=== PATIENT | female | born 1970 | race Caucasian/White ===

== ENCOUNTER 2016-07-16 09:09 | Emergency (ER) | payer BC | END 2016-07-16 10:15 | disposition home or self-care (01) | LOC: ER 09:09 | PROC: 2W3BX1Z Immobilization of Left Upper Arm using Splint (ICD-10-PCS; principal; 2016-07-16) | DX: M25.022 Hemarthrosis, left elbow (principal); Z90.710 Acquired absence of both cervix and uterus; Z88.5 Allergy status to narcotic agent | CPT/HCPCS: 73080-LT; 99284 ==